=== PATIENT | female | born 1985 | race Caucasian/White ===

== ENCOUNTER 2017-07-17 19:18 | Emergency (ER) | payer OTHER ==
[~2017-07-17] VITALS: Ht 167.6 cm; Wt 77.7 kg
[~2017-07-17 19:18] MED LIST: ACYCLOVIR800 MG PO; ASPIRIN81 M2 PO; DOCUSATE SODIU100 MG PO; ENDOCET 5-3251 EACH PO; HEPARIN SO5000 UNITS SC; IBUPROFEN800 MG PO; KEFLEX500 MG PO; NOHOMEMEDS; PRENATAL TABLE1 EAC3 PO; PYRIDIUM200 MG PO; SERTRALINE HCL50 MG; ZOFRAN4 MG PO
[2017-07-17 20:15] LABS: HEMATOCRIT 36.6 % (36.0-46.0); MCHC 34.4 G/DL (30.0-36.0); MCV 87.1 FL (83-99); MEAN PLAT.VOLUME 10.2 uM^3 (9.5-12.4); PLATELET COUNT 223 K/uL (156-360); RBC DIS.WIDTH-CV 12.3 % (11.8-14.6); WHITE BLOOD COUNT 10.4 K/uL (4.1-10.2)
[2017-07-17 20:41] LABS: ADD MIUA? YES; BILIRUBIN NEGATIVE; BLOOD NEGATIVE; COLOR YELLOW ((YELLOW)); GLUCOSE (STRIP) NEGATIVE; KETONES 5; LEUKOCYTES TRACE; NITRITE NEGATIVE; PROTEIN (STRIP) 30
[2017-07-17 20:46] LABS: BACTERIA RARE /HPF; EPITHELIAL CELLS 1+ /HPF; MUCUS 3+ /LPF; RED BLOOD CELLS 0-5 /HPF (0-5); UCUL ADDED? NO; WHITE BLOOD CELLS 0-5 /HPF (0-5)
[2017-07-17] MEDS ORDERED: PRENATAL TABLE1 EAC3 PO (22:38)
[2017-07-17 22:49] VITALS: BP 119/67
== END 2017-07-17 22:49 | disposition home or self-care (01) ==
LOC: EME 19:18
DX: O20.9 Hemorrhage in early pregnancy, unspecified (principal); Z3A.18 18 weeks gestation of pregnancy; Z87.891 Personal history of nicotine dependence
CPT/HCPCS: 76805; 81003; 84702; 85027; 99281; 99284

== ENCOUNTER 2017-10-06 21:42 | Outpatient (CLI) | payer OTHER ==
[2017-10-06 21:56] VITALS: BP 118/73
[2017-10-06] MEDS ORDERED: ZOVIRAX800 M1 PO (22:34)
== END 2017-10-06 22:40 | disposition home or self-care (01) ==
LOC: LDRP-OP 21:42 → 2WEST 21:43 → LDRP-OP 01-16 09:33
DX: O36.8130 Decreased fetal movements, third trimester, not applicable or unspecified (principal); O98.313 Other infections with a predominantly sexual mode of transmission complicating pregnancy, third trimester; A60.00 Herpesviral infection of urogenital system, unspecified; O34.03 Maternal care for unspecified congenital malformation of uterus, third trimester; Q51.3 Bicornate uterus; O99.343 Other mental disorders complicating pregnancy, third trimester; F32.9 Major depressive disorder, single episode, unspecified; O34.219 Maternal care for unspecified type scar from previous cesarean delivery; O09.293 Supervision of pregnancy with other poor reproductive or obstetric history, third trimester; Z3A.29 29 weeks gestation of pregnancy
CPT/HCPCS: 59025; G0378

== ENCOUNTER 2017-11-28 05:45 | Inpatient (IN) | payer OTHER ==
[~2017-11-28] VITALS: Ht 167.6 cm; Wt 89.1 kg
[~2017-11-28 05:45] MED LIST changes: +ZOVIRAX800 M1 PO
[2017-11-28 06:07] VITALS: BP 115/78
[2017-11-28 11:11] VITALS: BP 110/51
[2017-11-28 19:23] VITALS: BP 86/46
[2017-11-28 21:17] VITALS: BP 94/50
[2017-11-28 23:26] VITALS: BP 85/50
[2017-11-29] VITALS (7 sets, daily range): BP systolic 95–115; BP diastolic 52–69
[2017-11-29 07:26] LABS: BASOPHIL (%) 0.5 % (0-1); EOSINOPHIL (%) 1.5 % (0-5); EOSINOPHIL COUNT 0.1 K/uL (0-0.3); HEMATOCRIT 27.2 % (36.0-46.0); IMMATURE GRANULOCYTE (%) 0.6 % (0.0-0.7); LYMPHOCYTE (%) 21.3 % (15-42); LYMPHOCYTE COUNT 1.9 K/uL (1.0-2.8); MCH 28.7 PG (29.0-34.0); MCHC 32.7 G/DL (30.0-36.0); MCV 87.7 FL (83-99); MONOCYTE (%) 9.5 % (3-12); MONOCYTE COUNT 0.8 K/uL (0-0.8); NEUTROPHIL (%) 66.6 % (45-76); NEUTROPHIL COUNT 5.9 K/uL (1.8-6.4); PLATELET COUNT 164 K/uL (156-360); RBC DIS.WIDTH-CV 12.7 % (11.8-14.6); RBC DIS.WIDTH-SD 40.4 % (39-53); WHITE BLOOD COUNT 8.9 K/uL (4.1-10.2)
[2017-11-29 07:30] LABS: HEMOGLOBIN 8.9 G/DL (11.9-15.5)
[2017-11-29] MEDS ORDERED: MOTRIN800 MG PO (10:54)
[2017-11-29] MEDS ORDERED: PERCOCET 5/31 TABLET PO (10:54)
[2017-11-29] MEDS ORDERED: FEROSUL325 MG PO (10:54)
[2017-11-30 03:19] VITALS: BP 130/60
[2017-11-30 07:19] VITALS: BP 110/69
== END 2017-11-30 16:45 | disposition home or self-care (01) | DRG 765 ==
LOC: 2WEST 05:45 → 2SOUTH 09:16 → 2WEST 11-30 16:45
PROVIDERS: Obstetrics & Gynecology
PROC: 10D00Z1 Extraction of Products of Conception, Low, Open Approach (ICD-10-PCS; principal; 2017-11-28)
DX: O34.211 Maternal care for low transverse scar from previous cesarean delivery (principal); O98.32 Other infections with a predominantly sexual mode of transmission complicating childbirth; O99.824 Streptococcus B carrier state complicating childbirth; O99.344 Other mental disorders complicating childbirth; O98.42 Viral hepatitis complicating childbirth; B19.20 Unspecified viral hepatitis C without hepatic coma; A60.00 Herpesviral infection of urogenital system, unspecified; D64.9 Anemia, unspecified; F53 Mental and behavioral disorders associated with the puerperium, not elsewhere classified; O99.02 Anemia complicating childbirth; Z3A.37 37 weeks gestation of pregnancy; Z37.0 Single live birth
CPT/HCPCS: 36415; 85025; 86850; 86900; 86901; J0690; J1200; J2274; J2405; J7120